=== PATIENT | female | born 2000 | race African-American/Black ===

== ENCOUNTER 2024-03-12 19:22 | Emergency (ER) | payer OTHER ==
[~2024-03-12 19:22] MED LIST: MOTRIN, CH20 MG/1 ML OR; PATANOL0.1 % OP; POLYTRIM OU; TYLENOL CH160 MG/5 M OR
[2024-03-12 19:26] VITALS: BP 130/85
[2024-03-12 19:30] VITALS: BP 127/77
[2024-03-12] MEDS ORDERED: traMADol HCL 50 MG/TAB PO ONE (19:30)
[2024-03-12] MEDS ORDERED: NAPROXEN 250 MG/TAB PO ONE (19:30)
[2024-03-12] MEDS ORDERED: METHOCARBAMOL 500 MG/TAB PO ONE (19:35)
[2024-03-12 19:54] LABS: URINE BILIRUBIN - DIPSTICK Negative (NEGATIVE); URINE BLOOD DIPSTICK Small (NEGATIVE); URINE GLUCOSE - DIPSTICK Negative (NEGATIVE); URINE KETONE Negative (NEGATIVE); URINE LEUK ESTERASE Negative (NEGATIVE); URINE NITRITE - DIPSTICK Negative (Negative); URINE PH 5.5 (4.5-8.0); URINE PROTEIN - DIPSTICK Negative (NEG-TRACE); URINE SPECIFIC GRAVITY 1.025; URINE UROBILINOGEN - DIPSTICK 0.2 E.U./dL (0.2)
[2024-03-12 19:58] LABS: URINE COLOR Yellow
[2024-03-12 19:59] LABS: URINE RBC 0-2 RBC/hpf (0-5)
[2024-03-12 20:00] LABS: URINE BACTERIA FEW hpf; URINE SQUAMOUS EPITHELIAL CELL FEW EPI/hpf (0-FEW)
[2024-03-12 20:17] VITALS: BP 129/91
[2024-03-12] MEDS ORDERED: METHOCARBAMOL500 MG PO (20:25)
[2024-03-12] MEDS ORDERED: NAPROXEN500 MG PO (20:25)
[2024-03-12 20:30] VITALS: BP 123/84
[2024-03-12 21:11] VITALS: BP 123/84
== END 2024-03-12 21:13 | disposition home or self-care (01) | DRG 605 ==
LOC: ED 19:22
PROVIDERS: Nurse Practitioner
DX: S70.02XA Contusion of left hip, initial encounter (principal); V49.9XXA Car occupant (driver) (passenger) injured in unspecified traffic accident, initial encounter